=== PATIENT | female | born 1985 | race Caucasian/White ===

== ENCOUNTER 2019-03-01 23:49 | Emergency (ER) | payer SELFPAY ==
[~2019-03-01] VITALS: Ht 157.5 cm; Wt 72.6 kg
[2019-03-02 00:03] VITALS: BP 143/88
--- NOTE | 2019-03-02 00:03 | NUR ---
TO BED # 08 AMBULATORY
[2019-03-02 00:19] LABS: BASOPHILS # (AUTO) 0.1 K/uL (0.00-0.22); BASOPHILS % (AUTO) 0.6 % (0.0-2.0); EOSINOPHILS # (AUTO) 0.4 K/uL (0-0.4); EOSINOPHILS % (AUTO) 4.5 % (0.0-4.0); HEMATOCRIT 40.3 % (36-48); HEMOGLOBIN 13.3 g/dL (12.0-16.0); LYMPHOCYTES # (AUTO) 3.1 K/uL (2.5-16.5); LYMPHOCYTES % (AUTO) 32.4 % (20.5-51.1); MEAN CORPUSCULAR HEMOGLOBIN 30 pg (27-31); MEAN CORPUSCULAR HGB CONC 33 g/dL (33-37); MEAN CORPUSCULAR VOLUME 90.8 fL (80-94); MONOCYTES # (AUTO) 0.6 K/uL (0.8-1.0); MONOCYTES % (AUTO) 6.7 % (1.7-9.3); NEUTROPHILS # (AUTO) 5.3 K/uL (1.8-7.7); NEUTROPHILS % (AUTO) 55.8 % (42.2-75.2); PLATELET COUNT (AUTO) 183 K/uL (140-450); RED BLOOD CELL COUNT(AUTO) 4.43 MIL/uL (4.20-5.40); RED CELL DISTRIBUTION WIDTH 13.6 % (11.6-13.7); WHITE BLOOD COUNT (AUTO) 9.6 K/uL (4.8-10.8)
--- NOTE | 2019-03-02 00:19 | NUR ---
33/F C/O PAINLESS VAGINAL BLEEDING DESCRIBED GUSH OF BLOOD WITH CLOTS THAT STARTED AT 10PM TODAY. NO OTHER COMPLAINTS. HX- HYPOTHYROIDISM RX- LEVOTHYROXINE Addendum: 03/02/19 at 0024 by SINDHU NOTE BY JULIAN HEWITT RN
[2019-03-02 00:29] LABS: ANION GAP 12.7 (8-16); CARBON DIOXIDE 26.2 mmol/L (21-32); CREATININE 0.9 mg/dL (0.6-1.3); POTASSIUM 3.9 mmol/L (3.5-5.1)
--- NOTE | 2019-03-02 00:31 | NUR ---
U/S TECH AT BEDSIDE
[2019-03-02 00:49] LABS: APPEARANCE,URINE BLOODY (CLEAR); BILIRUBIN,URINE NEGATIVE (NEGATIVE); BLOOD, URINE 3+ (NEGATIVE); COLOR,URINE RED (YELLOW); LEUKOCYTE ESTERASE ,URINE NEGATIVE (NEGATIVE); NITRITE, URINE NEGATIVE (NEGATIVE); PH,URINE 5.5 (5.0-9.0); UGLUCOSE NEGATIVE (NEGATIVE)
[2019-03-02 01:16] LABS: RBC,URINE TOO NUMEROUS TO COUN /HPF (0-5)
[2019-03-02 01:39] VITALS: BP 143/88
--- NOTE | 2019-03-02 01:39 | NUR ---
Patient discharged with v/s stable. Written and verbal after care instructions given and explained. Patient verbalized understanding. Ambulatory with steady gait. All questions addressed prior to discharge. Advised to follow up with PMD.
== END 2019-03-02 01:39 | disposition home or self-care (01) ==
LOC: MED 23:49
DX: O20.8 Other hemorrhage in early pregnancy (principal); E03.9 Hypothyroidism, unspecified; Z3A.01 Less than 8 weeks gestation of pregnancy
CPT/HCPCS: 36415; 76801; 80048; 81001; 81025; 84702; 85025; 86900; 86901; 87086; 99284; Q0092; 81002